=== PATIENT | female | born 1985 | race Caucasian/White ===

== ENCOUNTER → 2025-01-16 | Outpatient (CLI) | payer MEDICAID, SELFPAY ==
[2025-01-16 14:22] LABS: HCG Qualitative,Urine Negative
--- NOTE | 2025-01-16 16:00 | XR_ITS ---
Examination: CT chest, without intravenous contrast. Sagittal and coronal 2-D reconstructions. Exam date and time: January 16, 2025, 1426 hours INDICATIONS: Cough and chest pain beginning 8 months ago CTDI:vol (mGy) 9.25 DLP: (mGycm) 368 Technique: Multiple 3.0 mm axial sections of the chest to been obtained. Bone and lung density settings are obtained. Sagittal and coronal 2-D reconstructions have been obtained. Low dose protocols were performed. One or more of the following dose reduction techniques were used; automated exposure control, adjustment of the mA and/or KV according to patient size, use of iterative reconstruction technique. Findings: No thoracic aortic aneurysm dilatation Pulmonary artery segments are nonenlarged. No paratracheal or tracheobronchial or bronchopulmonary adenopathy No pneumonia, pulmonary edema or pleural disease No visualized liver or splenic lesion Contracted gallbladder No pancreatic mass The osseous structures are intact IMPRESSION: No mediastinal lymphadenopathy No pneumonia, pulmonary edema, pleural disease or pulmonary nodules
== END | disposition home or self-care (01) ==
PROVIDERS: Referring Provider Internal Medicine Rheumatology; Visit Provider Internal Medicine Rheumatology
DX: R91.8 Other nonspecific abnormal finding of lung field (principal); Z32.00 Encounter for pregnancy test, result unknown
CPT/HCPCS: 71250; 81025

== ENCOUNTER → 2025-03-08 | Outpatient (CLI) | payer MEDICAID, SELFPAY ==
--- NOTE | 2025-03-08 08:15 | XR_ITS ---
Examination: Screening digital mammography, bilateral Computer aided detection 3-D breast Tomosynthesis, bilateral Date and time of exam: 03/08/2025, 8:17 a.m. Comparisons: Baseline exam Indications: Screening Technique: Nonmagnified MLO, CC views of the breasts to been obtained, reconstructed from 3-D Tomosynthesis images. R2 computer aided detection program utilized for evaluation of suspicious masses and/or abnormal calcifications. 3-D Tomosynthesis images obtained. Technologist: Findings: The breasts are heterogeneously dense, which may obscure small masses. No evidence of abnormal masses or suspicious calcifications. Bilateral subpectoral silicone implants appear intact. Impression: BI-RADS category 2: Benign findings Recommend 1 year follow-up mammogram
== END | disposition home or self-care (01) ==
LOC: CDIM 08:05
PROVIDERS: PCP Physician Assistant Medical; Referring Provider Physician Assistant Medical; Visit Provider Physician Assistant Medical
DX: Z12.31 Encounter for screening mammogram for malignant neoplasm of breast (principal); R92.323 Mammographic fibroglandular density, bilateral breasts
CPT/HCPCS: 77063; 77067

== ENCOUNTER → 2025-03-20 | Outpatient (CLI) | payer MEDICAID, SELFPAY ==
--- NOTE | 2025-03-20 14:02 | XR_ITS ---
Examination: Lumbar spine, 5 views Technique: Lumbar spine AP, lateral, coned lateral lower lumbar spine, bilateral obliques 5 views Exam date and time: 03/20/2025 at 2:24 p.m. CLINICAL HISTORY: Chronic back pain radiating into the hip and knee with swelling FINDINGS: The radiograph cover the spine from the the level of T9-T10 down through the level of L5-S1 there is mild degenerative narrowing of the posterior facet joints bilaterally at L4-5 and L5-S1. The alignment of the spine appears normal. The intervertebral disc spaces appear normal. Sacroiliac joints appear all right. There is very minor narrowing of the disc space at L5-S1. IMPRESSION: 1. There is exceedingly minor disc space narrowing at L5-S1. 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 2. In all other respects the study is entirely normal. 3. I do not see any abnormalities in the bowel gas pattern of soft and the posterior lower lung zones appear normal bilaterally
[2025-03-20 15:29] LABS: C-Reactive Protein < 0.5 mg/dL (0.0-0.9)
[2025-03-20 15:39] LABS: Sed Rate (ESR) 6 mm/hr (0-20)
[2025-03-21 14:03] LABS: Cocci Serology, IgM Negative (Negative)
[2025-03-23 12:43] LABS: Cocci Serology, IgG Negative (Negative)
[2025-03-27 07:09] LABS: HLA-B27 Antigen* NEGATIVE (NEGATIVE)
== END | disposition home or self-care (01) ==
LOC: CDIM 13:55 → COPL 14:31
PROVIDERS: PCP Physician Assistant Medical; Referring Provider Nurse Practitioner Family; Visit Provider Radiology Diagnostic Radiology
DX: M47.817 Spondylosis without myelopathy or radiculopathy, lumbosacral region (principal); M48.07 Spinal stenosis, lumbosacral region; R91.8 Other nonspecific abnormal finding of lung field; M19.90 Unspecified osteoarthritis, unspecified site
CPT/HCPCS: 36415; 72110; 85652; 86140; 86331; 86635; 86812